=== PATIENT | male | born 1985 | race African-American/Black ===

== ENCOUNTER 2021-08-22 07:35 | Emergency (ER) | payer SELFPAY ==
[2021-08-22] MEDS ORDERED: Lidocaine 1% 10 ML MDV INJECT ONE (08:11)
== END 2021-08-22 07:59 | disposition home or self-care (01) ==
LOC: JD.ED 07:35
DX: S01.01XA Laceration without foreign body of scalp, initial encounter (principal); Y04.0XXA Assault by unarmed brawl or fight, initial encounter
CPT/HCPCS: 12001; 70450; 70450-26; 70486; 70486-26; 99284-25

== ENCOUNTER 2021-11-30 08:37 | Emergency (ER) | payer BC ==
[2021-11-30] MEDS ORDERED: Morphine 2 MG/ML SYRINGE IVPUSH ONE (09:25)
[2021-11-30] MEDS ORDERED: Morphine 4 MG/ML Syringe IM ONE (09:32)
[2021-11-30] MEDS ORDERED: Morphine 2 MG/ML SYRINGE IM ONE (09:33)
== END 2021-11-30 09:40 ==
LOC: JD.ED 08:37
DX: N48.30 Priapism, unspecified (principal); F17.210 Nicotine dependence, cigarettes, uncomplicated
CPT/HCPCS: 96372; 99284; J2270; 99283